=== PATIENT | female | born 2000 | race Caucasian/White ===

== ENCOUNTER 2018-02-26 10:19 | Emergency (ER) | payer BC, OTHER ==
[~2018-02-26] VITALS: Ht 170.2 cm; Wt 73.4 kg
[~2018-02-26 10:19] MED LIST: EPP3/2 IM
[2018-02-26 10:21] VITALS: Ht 170.2 cm; Wt 73.4 kg
[2018-02-26 10:40] VITALS: O2SAT 99
[2018-02-26] MEDS ORDERED: METHYLPREDNISOLONE 125 MG VIAL IV STA (10:59)
[2018-02-26] MEDS ORDERED: FAMOTIDINE 20MG/5ML IV PUSH IV STA (10:59)
[2018-02-26] MEDS ORDERED: SODIUM CHLORIDE 0.9% 1000ML 1,000 ML IV STA (10:59)
--- NOTE | 2018-02-26 11:32 | EMERGENCY ROOM VISIT NOTE ---
History Report prepared by Robert: Deisy Figueroa Under the Supervision of: Dr. Boom Smith M.D. First contact with patient: 10:50 Chief Complaint: ALLERGIC REACTION Stated Complaint: SWOLLEN FACE, LIPS, TONGUE, HIVES Nursing Triage Summary: pt reports took 600mg motrin has hx of reaction to in past swollen face and lips hives. 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 The patient was being seen at the OBGYN to get Nexplanon inserted in her arm when the episode took place. She was told by nursing staff to take 600 mg of Motrin prior to the procedure. After taking the Motrin, the patient started to get hives as well as swollen lips and tongue. The patient reports she has had a previous reaction to Motrin in the past but she notes she has not taken it for 4 years. The patient was given 100 mg children's Benadryl prior to arrival which help resolve some of her symptoms. Source of History: patient Onset: jsut prior to arrival Position: other (generalized) Quality: other (allergic reaction) Timing: other (episode) Associated Symptoms: + rash Review of Systems See HPI for pertinent positives & negatives. A total of 10 systems reviewed and were otherwise negative. Past Medical & Surgical Medical Problems: (1) Ac Serous Otitis Media Family History FHx: heart disease Social History Smoking Status: Never Smoker Alcohol Use: none Marital Status: single Housing Status: lives with family Occupation Status: student Current/Historical Medications Scheduled Multiple Vitamin (Daily Vitamin), 1 TAB PO DAILY Prednisone (Prednisone Tab), 0 PO DAILY Ranitidine Hcl (Zantac), 150 MG PO BID Allergies Coded Allergies: Ibuprofen (Unverified Allergy, Severe, SWELLING OF LIP,THROAT,TONGUE,AND FACE, 02/26/18) Physical Exam Vital Signs Date Time Temp Pulse Resp B/P (MAP) Pulse Ox O2 Delivery O2 Flow Rate FiO2 02/26/18 12:29 36.7 62 15 109/76 93 02/26/18 12:01 62 109/76 93 Room Air 02/26/18 12:00 63 15 93 Room Air 02/26/18 11:31 111/76 02/26/18 11:30 59 15 02/26/18 10:40 99 Room Air 02/26/18 10:37 78 02/26/18 10:21 36.7 76 18 135/100 99 Room Air Physical Exam GENERAL: Awake, alert, well-appearing, in no acute distress HENT: Normocephalic, atraumatic. Oropharynx unremarkable. EYES: Normal conjunctiva. Sclera non-icteric. NECK: Supple. No nuchal rigidity. FROM. No JVD. No stridor. RESPIRATORY: Clear to auscultation. No wheezing. CARDIAC: Regular rate, normal rhythm. Extremities warm and well perfused. Pulses equal. ABDOMEN: Soft, non-distended. No tenderness to palpation. No rebound or guarding. No masses. RECTAL: Deferred. MUSCULOSKELETAL: Chest examination reveals no tenderness. The back is symmetrical on inspection without obvious abnormality. There is no CVA tenderness to palpation. No joint edema. LOWER EXTREMITIES: Calves are equal size bilaterally and non-tender. No edema. No discoloration. NEURO: Normal sensorium. No sensory or motor deficits noted. SKIN: Red urticaria to chest. Medical Decision & Procedures Medications Administered Medications (Trade) Dose Ordered Sig/Fozia Route Start Time Stop Time Status Last Admin Dose Admin Sodium Chloride 1,000 ml @ 999 mls/hr Q1H1M STAT IV 02/26/18 10:59 02/26/18 11:59 DC 02/26/18 11:11 999 MLS/HR Methylprednisolone Sodium Succinate (Solu-Medrol IV) 125 mg NOW STAT IV 02/26/18 10:59 02/26/18 11:01 DC 02/26/18 11:11 125 MG Famotidine (Pepcid 20mg Iv Push) 20 mg ONE STAT IV 02/26/18 10:59 02/26/18 11:01 DC 02/26/18 11:11 20 MG ED Course 1055: Past medical records reviewed. The patient was evaluated in room A9B. A complete history and physical examination was performed. 1059: Ordered Famotidine 20 mg IV, Solu-Medrol IV 125 mg IV, Sodium Chloride 1000 ml @ 999 mls/hr. 1207: I discussed the patient's case with [facility], they said have the patient follow up on Saturday . 1214: I updated the patient on her test results. She will follow up with OBGYN on Saturday. 1226: Upon reexamination the patient is resting comfortably. I discussed results and treatment plan with the patient. She verbalizes agreement and understanding. The patient is ready for discharge. Medical Decision Differential diagnosis: Etiologies such as allergic reaction, anaphylaxis, urticaria, Guerrero-Cody syndrome, toxic epidermal necrolysis, erythema multiforme, cellulitis, as well as others were entertained. This is a 18-year-old female who presents emergency department complaining of allergic reaction. The patient has had allergic reactions to ibuprofen in the past and now presents the emergency department with swollen lips and a rash. An IV was established, the patient given normal saline bolus, Solu-Medrol and Zantac. Repeat examination revealed much improvement the patient's symptoms. I do feel that the patient can be safely discharged home. I tried to get the patient sent back to gynecology however they do not have time for her today. She is going to follow-up on Saturday. Medication Reconcilliation Current Medication List: was personally reviewed by me Blood Pressure Screening Patient's blood pressure: Normal blood pressure Consults Time Called: 1200 Consulting Physician: [facility] Returned Call: 1207 [facility], they said have the patient follow up on Saturday . Impression Primary Impression: Allergic reaction Scribe Attestation The scribe's documentation has been prepared under my direction and personally reviewed by me in its entirety. I confirm that the note above accurately reflects all work, treatment, procedures, and medical decision making performed by me. Departure Information Dispostion Home / Self-Care Prescriptions Prednisone (Prednisone Tab) 20 Mg Tab 0 PO DAILY, #7 TAB 2 TABS DAILY FOR 2 DAYS, THEN 1 TAB DAILY FOR 2 DAYS, THEN 1/2 TAB DAILY FOR 2 DAYS. Prov: Boom Smith MD 02/26/18 Ranitidine Hcl (ZANTAC) 150 Mg Tab 150 MG PO BID for 5 Days, #10 TAB Prov: Boom Smith MD 02/26/18 Referrals No Doctor, Assigned (PCP) Forms HOME CARE DOCUMENTATION FORM, IMPORTANT VISIT INFORMATION Patient Instructions ED Allergic Reaction General Other, My [facility] Additional Instructions STOP taking Ibuprofen Follow up with OB on Saturday Take 50 mg Benadryl every 6 hours You have been examined and treated today on an emergency basis only. This is not a substitute for, or an effort to provide, complete comprehensive medical care. It is impossible to recognize and treat all injuries or illnesses in a single emergency department visit. It is therefore important that you follow up closely with Dr Doan. Call as soon as possible for an appointment. Thank you for your time and consideration. I look forward to speaking with you again soon. Please don't hesitate to call us if you have any questions. Problem Qualifiers Primary Impression: Allergic reaction Encounter type: initial encounter Qualified Codes: T78.40XA - Allergy, unspecified, initial encounter
[2018-02-26] MEDS ORDERED: MULT-808 PO (11:38)
[2018-02-26] MEDS ORDERED: PRED20TA2 PO (12:18)
[2018-02-26] MEDS ORDERED: RANI150T3 PO (12:18)
[2018-02-26 12:29] VITALS: BP 109/76; PULSE 62; TEMP 36.7; O2SAT 93
== END 2018-02-26 12:30 | disposition home or self-care (01) ==
LOC: C.EDB 10:21 → C.EDA 12:30
DX: T39.315A Adverse effect of propionic acid derivatives, initial encounter (principal); Z88.6 Allergy status to analgesic agent; Z97.5 Presence of (intrauterine) contraceptive device; Z82.49 Family history of ischemic heart disease and other diseases of the circulatory system